=== PATIENT | female | born 1960 | race Two or more races ===

== ENCOUNTER 2021-07-22 07:45 | Inpatient (IN) | payer OTHER ==
[~2021-07-22] VITALS: Ht 160 cm; Wt 67.1 kg
[2021-07-22] MEDS ORDERED: ALTACE5 MG PO (11:18)
[2021-07-22] MEDS ORDERED: SIMVASTATIN10 MG PO (11:18)
[2021-07-22] MEDS ORDERED: METFORMIN HCL500 M3 PO (11:18)
[2021-07-22] MEDS ORDERED: LEVO-T88 MCG PO (11:18)
== END 2021-08-12 10:47 | disposition home or self-care (01) | DRG 743 ==
LOC: SURH 07-27 07:00 → O/R 08-10 05:22 → OB/GYN 08-10 09:50
PROVIDERS: ADMIT Obstetrics & Gynecology; ATTEND Obstetrics & Gynecology
PROC: 0UT70ZZ Resection of Bilateral Fallopian Tubes, Open Approach (ICD-10-PCS; 2021-08-10)
PROC: 0UT20ZZ Resection of Bilateral Ovaries, Open Approach (ICD-10-PCS; 2021-08-10)
PROC: 0UT90ZZ Resection of Uterus, Open Approach (ICD-10-PCS; principal; 2021-08-10 05:30)
DX: D25.1 Intramural leiomyoma of uterus (principal); N80.0 Endometriosis of uterus; Z20.822 Contact with and (suspected) exposure to COVID-19; N72 Inflammatory disease of cervix uteri; N83.291 Other ovarian cyst, right side; N83.292 Other ovarian cyst, left side